=== PATIENT | female | born 1965 | race Caucasian/White ===

== ENCOUNTER 2021-07-09 11:02 | Emergency (ER) | payer MEDICARE, SELFPAY ==
--- NOTE | 2021-07-09 11:07 | ED.FEMALEGU ---
HPI - Female Genitourinary General Chief complaint: Urogenital-Female Stated complaint: uti symptoms Time Seen by Provider: 07/09/21 11:07 Source: patient and RN notes reviewed History of Present Illness HPI Narrative: Patient is a 55-year-old female who presents the urgent care with complaints of a possible UTI. States that she has a lot of urinary frequency and suprapubic pressure that started last night. Patient states she does have a history of UTIs with her last one being approximately 5 months ago. Patient states she believes she was on doxycycline at that time. Patient denies of any nausea, vomiting, fever or low back pain. Denies of any blood in the urine. No other complaints. No stress noted. Patient aware of the of care. Some parts of this dictation were generated by voice recognition software and may contain typographical and/or grammatical inaccuracies. Related Data Allergies Allergy/AdvReac Type Severity Reaction Status Date / Time meperidine Allergy Unknown Verified 02/17/12 02:25 tetracycline Allergy Unknown Verified 02/17/12 02:25 Review of Systems Review of Systems: CONSTITUTIONAL: Denies fever, chills, or sweats. EYES: Denies visual changes, redness, or discharge. ENT: Denies rhinorrhea, congestion, sore throat, or otalgia. CARDIOVASCULAR: Denies chest pain, palpitations, or edema. RESPIRATORY: Denies cough or dyspnea. GASTROINTESTINAL: Denies abdominal pain, nausea, vomiting, or diarrhea. GENITOURINARY: Reports of urinary frequency without hematuria, dysuria SKIN: Denies rash or itching. MUSCULOSKELETAL: Denies back pain, joint pain, or myalgia. NEUROLOGIC: Denies headache, numbness, or weakness. All other systems reviewed are negative, except as documented in HPI. PMFSH Comments At the time of my signature, I reviewed and agree with the nursing past medical, surgical, social, and family history. There is no relevant family history pertinent to the patient complaint. Exam Narrative: GENERAL: This is a well-nourished, well-developed patient, in no apparent distress. HEAD: normocephalic, atraumatic. EYES: PERRL. Sclera clear/white. Vision is grossly intact. EARS: External ears normal\ NOSE: External nose normal with no obvious nasal discharge, nares without redness, no rhinorrhea. THROAT: Mucous membranes moist NECK: Neck supple CARDIOVASCULAR: Regular rate and rhythm without murmurs, gallops, or rubs. RESPIRATORY: Clear to auscultation. Breath sounds equal bilaterally. No wheezes, rales, or rhonchi. GASTROINTESTINAL: Abdomen soft, mild suprapubic tenderness, nondistended. Bowel sounds are active. SKIN: warm, intact with no suspicious lesions or rash, good texture and turgor. NEURO: awake, alert, and oriented to person, place and time. There were no obvious focal neurologic abnormalities. EXTREMITIES: No clubbing, cyanosis, or edema. BACK: Negative bilateral CVA tenderness Course Vital Signs Vital signs: Vital Signs Temperature 96.8 F L 07/09/21 11:19 Pulse Rate 79 07/09/21 11:19 Respiratory Rate 16 07/09/21 11:19 Blood Pressure 221/130 H 07/09/21 11:19 Pulse Oximetry 99 07/09/21 11:19 Temperature 96.8 F L 07/09/21 11:19 Pulse Rate 79 07/09/21 11:19 Respiratory Rate 16 07/09/21 11:19 Blood Pressure 221/130 H 07/09/21 11:19 Pulse Oximetry 99 07/09/21 11:19 Reviewed-patient is informed that they may have pre-hypertension or hypertension based on a blood pressure reading in the department. I recommend the patient call the primary care provider listed on their discharge instructions or a physician of their choice this week to arrange follow-up for further evaluation of possible pre-hypertension or hypertension. Patient is very aware of her risks of their elevated blood pressure and states that she will follow-up with her primary care doctor versus being seen for hypertension in the emergency room. Patient currently denies any symptoms such as headache, blurry visio
[2021-07-09 11:19] VITALS: BP 221/130; PULSE 79; RESP 16; TEMP 36; O2SAT 99
== END 2021-07-09 11:49 | disposition home or self-care (01) ==
PROVIDERS: Emergency Provider Nurse Practitioner Family; PCP Internal Medicine
DX: N39.0 Urinary tract infection, site not specified (principal); I10 Essential (primary) hypertension
CPT/HCPCS: 81003; 87077; 87086; 87186; 99203; G0463